=== PATIENT | female | born 1970 | race Asian ===

== ENCOUNTER 2017-05-17 11:34 | Day surgery (SDC) | payer OTHER ==
[~2017-05-17] VITALS: Ht 160 cm; Wt 71.8 kg
[~2017-05-17 11:34] MED LIST: CYCL10 PO; METO100ER PO; TRAM50 PO
== END 2017-05-17 15:27 | disposition home or self-care (01) ==
LOC: ORSCSDS 11:34
PROVIDERS: Orthopaedic Surgery
PROC: 0JBP0ZX Excision of Left Lower Leg Subcutaneous Tissue and Fascia, Open Approach, Diagnostic (ICD-10-PCS; principal; 2017-05-17 13:00)
DX: C40.22 Malignant neoplasm of long bones of left lower limb (principal); I10 Essential (primary) hypertension; Z79.899 Other long term (current) drug therapy
CPT/HCPCS: 88304; J0690; J2250; J3010; J7120

== ENCOUNTER → 2020-03-10 | Outpatient (CLI) | payer OTHER | LOC: LAB 07:20 → LAB SHORT 07:20 | DX: R21 Rash and other nonspecific skin eruption (principal) | CPT/HCPCS: 88305; 88312 ==